=== PATIENT | male | born 1995 | race Caucasian/White ===

== ENCOUNTER 2018-03-12 02:15 | Emergency (ER) | payer BC ==
[~2018-03-12] VITALS: Ht 180.3 cm; Wt 95.3 kg
[~2018-03-12 02:15] MED LIST: NOHOMEMEDICATIONS
[2018-03-12] MEDS ORDERED: NORCO 5-325 TA1 EACH PO (03:24)
[2018-03-12] MEDS ORDERED: MAGIC MOUTHWASH PO (03:24)
[2018-03-12] MEDS ORDERED: PENICILLIN V P500 MG PO (03:24)
[2018-03-12 03:45] VITALS: BP 140/88
== END 2018-03-12 03:47 | disposition home or self-care (01) ==
LOC: M.ERS 02:15
DX: K02.9 Dental caries, unspecified (principal); F17.200 Nicotine dependence, unspecified, uncomplicated